=== PATIENT | female | born 1960 | race Caucasian/White ===

== ENCOUNTER → 2017-10-04 | Day surgery (SDC) | payer BC ==
--- NOTE | 2017-10-08 20:40 | OP ---
DATE OF OPERATION: 10/04/2017 PREOPERATIVE DIAGNOSIS: Right axillary mass. POSTOPERATIVE DIAGNOSIS: Right axillary mass. PROCEDURE: Right ultrasound-guided core biopsy with clip placement. ANESTHESIA: Local. ATTENDING SURGEON: Chano Cole MD ESTIMATED BLOOD LOSS: Minimal. COMPLICATIONS: None. DESCRIPTION OF PROCEDURE: Patient was made aware of the risks and benefits of the procedure and consented. She was placed in supine position. Under sterile conditions of 1% lidocaine for local anesthesia, small dayana was made in the skin. Using a 13-suction biopsy device via inferolateral approach under ultrasound guidance, multiple cores were obtained and submitted to Pathology. Likewise, under ultrasound guidance, a U-shaped clip was placed into the biopsy region. Well tolerated by patient. Steri-Strip and sterile bandage were applied. We will contact her with results. CHANO COLE M.D. [id number]
--- NOTE | 2017-10-14 10:50 | PATH ---
Surgical Pathology Report Patient Name: ADRIANE MUÑOZ [facility]. Rec. #: [id number] /Age/Gender: 1960 (Age: 57) / F Account: [id number] Location: [facility] Taken: 10/04/2017 Received: 10/07/2017 Reported: 10/14/2017 Physicians: Rodney Reilly M.D. 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 SEE COMMENT. Comment: Histologic sections show several cores of fibroadipose and lymphoid tissue. The lymphoid tissue has a nodular architecture with scattered secondary follicles. The germinal centers have normal cellular components including centrocytes, centroblasts, and tingible body macrophages. Occasional progressive transformation of germinal centers are present. Immunohistochemical stains for CD20 and CD3 show normal compartmentalization of B cells and T cells, respectively. CD20+ germinal centers are additionally positive for CD10 and BCL-6, while negative for BCL-2. Stain for CD5 is similar to CD3. A stain for cyclin D1 is negative in lymphocytes. Stains for CD21 and CD23 highlight intact dendritic meshworks in the germinal centers. A stain for CD138 highlights scattered plasma cells. In situ hybridization for Freeland and Lambda light chains show the plasma cells to be polytypic. Case was sent for hematopathology consultation with immunohistochemistry to Dr. Carlo Fairbanks from [place], [place] ([id number]), the diagnosis above reflects his opinion. Electronically Signed Irma Cooper M.D. Gross Description Received in formalin labeled "right axilla lymph node," is a 2.0 x 2.0 x 0.3 cm aggregate of multiple raphael-yellow, irregular to cylindrical portions of fibroadipose tissue admixed with blood clot. The formalin is filtered and the specimen is entirely submitted in one cassette. Total formalin fixation time: Approximately 74 hours 10/07/201710/07/2017
== END | disposition home or self-care (01) ==
LOC: FRADUS-SUR 14:01
PROVIDERS: ATTEND Surgery Surgical Oncology
PROC: 07B53ZX Excision of Right Axillary Lymphatic, Percutaneous Approach, Diagnostic (ICD-10-PCS; principal; 2017-10-04)
PROC: BH47ZZZ Ultrasonography of Upper Extremity (ICD-10-PCS; 2017-10-04)
DX: R59.0 Localized enlarged lymph nodes (principal)
CPT/HCPCS: 19083; 88305-TC

== ENCOUNTER 2019-09-27 08:43 | Observation (INO) | payer BC ==
--- NOTE | 2019-09-27 08:52 | PDOC ---
History of Present Illness - General Chief Complaint: Syncope/Near Syncope Stated Complaint: DIZZY, PASSED OUT Time Seen by Provider: 09/27/19 08:45 History Source: Patient Exam Limitations: No Limitations - History of Present Illness Initial Comments: 09/27/19 09:12 59y F Migraine Headaches presenting with a complaint of syncope. Patient states that when she woke up she did not feel well she had some epigastric pain she also felt very warm And lightheaded With palpitations she went downstairs to get something to drink and she syncopized when she was Downstairs. Patient states that she was unconscious for several minutes before family found her, She endorses Mild pounding headache on her left sikhism. She also endorses a mild left back pain. Patient denies any chest pain, shortness of breath, diaphoresis, Recent fever, chills, cough, diarrhea, melena, dysuria, leg swelling, calf pain Patient states she has been feeling well otherwise the last several Days. PMD: Dr. Alexander Social: denies rec drug use ROS Constitutional - no reported Fever, Chills, HEENT: no reported vision changes, sore throat Respiratory: no reported cough, sob, hemoptysis Cardiac: + Syncope, Palpitations, Lightheadedness no reported chest pain, palpitations, leg swelling Abd/GI: +nausea no reported abd pain, vomiting, blood per rectum, melena, diarrhea : no reported dysuria, frequency, discharge Musculskelatal - no reported back pain, joint swelling skin - no reported bruising, erythema, rash neurological: +headache, no reported numbness, focal weakness, tingling, ataxia , hematologic: no reported easy bruising, easy bleeding Physicial Exam GENERAL: The patient is awake, alert, and fully oriented, Nontoxic - in no acute distress. HEAD: Normocephalic, atraumatic. EYES: extraocular movements intact, sclera anicteric, conjunctiva clear. ENT: Normal voice, Moist mucous membranes. NECK: Normal range of motion, supple LUNGS: Breath sounds equal, clear to auscultation bilaterally. No wheezes, no rhonchi, no rales. HEART: Regular rate and rhythm, normal S1 and S2 without murmur, rub or gallop. ABDOMEN: Soft, nontender, No guarding, no rebound. No CVA tenderness EXTREMITIES: Normal range of motion, no edema. PSYCH: Normal mood, normal affect. SKIN: Warm, Dry, normal turgor, NEURO: Mental status: The patient is oriented x3. Cranial nerves: Cranial nerves II through XII are intact Motor: The upper extremities are 5 over 5 in all muscle groups. The lower extremities are 5 over 5 in all muscle groups. Negative pronator drift Sensation: Sensation is intact to light touch throughout. romberg negative Cerebellar: Vgvfcm-slevzy-ccde is normal in both upper extremities. Heel-knee- andersen is normal in both lower extremities. rapid alternating movements are normal. Reflexes: 2+ and symmetric in the upper and lower extremities. Back: No midline tenderness to the cervical, thoracic or lumbar spine Musculoskelatal: FROM of b/l shoulders, elbows, wrist. FROM of hips, knees, ankles - No signs of ecchymosis, erythema, or crepitus noted on palpation extremities, chest wall, clavicals, ribs, back. Differential for the patient's symptoms includes vasovagal syncope, ACS, arrhythmia, anemia, metabolic derangement, Dehydration, occult infection No signs of other injury Will obtain CBC, CMP, troponin, EKG, UA We will place the patient on cable engineer outside plant We will give the patient fluids and Reglan and Tylenol for symptoms Past History - Past Medical History Allergies/Adverse Reactions: Allergies Allergy/AdvReac Type Severity Reaction Status Date / Time latex Allergy Verified 09/27/19 09:02 shellfish derived Allergy Verified 09/27/19 09:02 Home Medications: Ambulatory Orders NK [No Known Home Medication] 09/27/19 COPD: No CHF: No - Psycho Social/Smoking Cessation Hx Smoking History: Never smoked Hx Alcohol Use: No Drug/Substance Use Hx: No Substance Use Type: None *Physical Exam - Vital Signs Last Vital Signs Temp Pulse Resp BP Pulse Ox 98.2 F 89 15 81/69 L 97 09/27/19 11:15 09/27/19 11:44 09/27/19 11:15 09/27/19 11:44 09/27/19 11:40 Heart Score/ECG Review - ECG Impressions Comment:: 09/27/19 09:20 Twelve-lead EKG was performed and reviewed by me. There is normal sinus rhythm with a normal rate. The axis is normal. The intervals are normal. There is normal R wave progression There are no ST or T wave abnormalities. Impression: Normal twelve-lead EKG ED Treatment Course - LABORATORY CBC & Chemistry Diagram: 09/27/19 09:18 09/27/19 09:18 - ADDITIONAL ORDERS Additional order review: Laboratory Results 09/27/19 09/27/19 09/27/19 11:18 11:18 09:18 PT with INR 12.5 INR 1.12 Sodium Potassium Chloride Carbon Dioxide Anion Gap BUN Creatinine Est GFR (CKD-EPI)AfAm Est GFR (CKD-EPI)NonAf POC Glucometer Random Glucose Calcium Total Bilirubin AST ALT Alkaline Phosphatase Creatine Kinase 83 Troponin I Total Protein Albumin Urine Color Yellow Urine Appearance Clear Urine pH 8.5 H Urine Protein Negative Urine Glucose (UA) Negative Urine Ketones Negative Urine Blood Negative Urine Nitrite Negative Urine Bilirubin Negative Urine Urobilinogen 0.2 Ur Leukocyte Esterase Negative 09/27/19 09/27/19 09/27/19 09:18 09:18 08:51 PT with INR INR Sodium 139 Potassium 3.9 Chloride 107 Carbon Dioxide 27 Anion Gap 5 L BUN 19.0 H Creatinine 0.5 L Est GFR (CKD-EPI)AfAm 121.07 Est GFR (CKD-EPI)NonAf 104.46 POC Glucometer 109 Random Glucose 108 H Calcium 9.1 Total Bilirubin 0.6 AST 22 ALT 15 Alkaline Phosphatase 61 Creatine Kinase Troponin I < 0.03 Total Protein 6.3 L Albumin 3.9 Urine Color Urine Appearance Urine pH Urine Protein Urine Glucose (UA) Urine Ketones Urine Blood Urine Nitrite Urine Bilirubin Urine Urobilinogen Ur Leukocyte Esterase 09/27/19 09/27/19 09:18 08:51 RBC 4.28 MCV 88.6 MCHC 32.2 RDW 12.7 MPV 10.0 Neutrophils % 85.9 H Lymphocytes % 9.6 Monocytes % 4.4 Eosinophils % 0.0 Basophils % 0.1 POC Glucometer 109 - Medications Given in the ED: ED Medications Discontinued Medications Generic Name Dose Route Start Last Admin Trade Name Freq PRN Reason Stop Dose Admin Acetaminophen 650 mg 09/27/19 09:10 09/27/19 09:23 Tylenol - PO 09/27/19 09:11 650 mg ONCE ONE Administration Sodium Chloride 1,000 mls @ 1,000 mls/hr 09/27/19 09:10 09/27/19 09:23 Normal Saline - IV 09/27/19 10:09 1,000 mls/hr .Q1H ONE Administration Metoclopramide HCl 10 mg 09/27/19 09:12 09/27/19 09:24 Reglan Injection - IVPUSH 09/27/19 09:13 10 mg ONCE ONE Administration Medical Decision Making - Medical Decision Making 09/27/19 11:10 The patient's lab work was reviewed The patient is feeling improved The patient's family noted the patient and syncopized for approx 15 minutes She also notes that her father had history of blood clots will send a d-dimer To eval for possible PE Will observe for syncope 09/27/19 12:30 + orthostatics will hysrate dimer neg case dw [employer] Cigi will admit for further managemen tin stacia for further workup of syncope Case discussed in detail with admitting physician including history, physical exam and ancillary studies. Admitting physician has assumed care for the patient, will follow all pending diagnostics and will complete the evaluation and treatment. Discharge - Discharge Information Problems reviewed: Yes Clinical Impression/Diagnosis: Syncope Qualifiers: Syncope type: unspecified Qualified Code(s): R55 - Syncope and collapse Condition: Stable - Admission Yes - Follow up/Referral - Patient Discharge Instructions - Post Discharge Activity
[2019-09-27] MEDS ORDERED: SODIUM CHLORIDE 1,000 ML IV ONE ×3 (09:10→12:28)
[2019-09-27] MEDS ORDERED: ACETAMINOPHEN 325 MG TABLET (FP) PO ONE (09:10)
[2019-09-27] MEDS ORDERED: METOCLOPRAMIDE HCL INJECTION 10 MG/2 ML VIAL IVPUSH ONE (09:12)
[2019-09-27 09:46] LABS: BASO % 0.1 % (0-2.0); HEMATOCRIT 37.9 % (32.4-45.2); HEMOGLOBIN 12.2 GM/dl (10.7-15.3); LYMPH % 9.6 % (8-40); MCH 28.5 pg (25.7-33.7); MCHC 32.2 g/dl (32.0-36.0); MEAN CELL VOLUME 88.6 fl (80-96); MONO % 4.4 % (3.8-10.2); NEUT % 85.9 % (42.8-82.8); PLATELET COUNT 210 K/MM3 (134-434); RBC 4.28 M/mm3 (3.60-5.2); RDW 12.7 % (11.6-15.6); WHITE BLOOD COUNT 12.9 K/mm3 (4.0-10.8)
[2019-09-27 09:54] LABS: ALBUMIN 3.9 g/dl (3.4-5.0); BILIRUBIN,TOTAL 0.6 mg/dl (0.2-1); CREATININE 0.5 mg/dl (0.55-1.3); TOT PROT 6.3 g/dl (6.4-8.2)
[2019-09-27 10:56] LABS: CALCIUM 9.1 mg/dL (8.5-10.1); POTASSIUM 3.9 mmol/L (3.5-5.1)
[2019-09-27 11:54] LABS: INR 1.12 (0.82-1.09); PROTHROMBIN TIME (PATIENT) 12.5 SEC (10.2-13.0)
--- NOTE | 2019-09-27 12:59 | HP ---
CHIEF COMPLAINT: Syncope PCP: Dr. Alexander HISTORY OF PRESENT ILLNESS: This is a 59 year old female with a hx of Migraine Headaches, borderline DM/ HDL , who was BIBA from home after a syncopal episode. Pt reports that she woke with epigastric pain and feeling hot with palpitations. Pt denies cp, sob, dizziness, weakness,fever, chills, cough, JANG,N/V/D or urinary symptoms. She reportedly went downstairs to the kitchen to get something to drink. While she was in the kitchen became very dizzy , denies vertigo and the next thing she remember is waking up on the floor,and EMS around her. Family found her on the floor and called EMS,. Family found her on the floor and called EMS. No inc of B /B noted, reports was in a usual state of health, denies any recent sickness or sick contact. ER course was notable for: (1)EKG: SR (2)WBC 12.9,H/H 12.2/37.9, D- Dimer <215, (3) CT head : No evidence of acute intracranial pathology (4) positive orthostatic hypotension Recent Travel:No PAST MEDICAL HISTORY: as mentioned above PAST SURGICAL HISTORY: Rt breast lumpectomy x2 Tonsillectomy at age 16 Laser sx for left leg varicose vein-2018 Tubal ligation Social History: Smoking:No Alcohol:No Drugs: No Family HX Father - CAD, CABG, blood clot Mother -CVA Aunt pancreatic CA Allergies latex Allergy (Verified 09/27/19 09:02) shellfish derived Allergy (Verified 09/27/19 09:02) HOME MEDICATIONS: Home Medications Medication Instructions Recorded NK [No Known Home Medication] 09/27/19 REVIEW OF SYSTEMS CONSTITUTIONAL: Gen weakness, malaise Absent: fever, chills, diaphoresis, loss of appetite, weight change HEENT: Absent: rhinorrhea, nasal congestion, throat pain, throat swelling, difficulty swallowing, mouth swelling, ear pain, eye pain, visual changes CARDIOVASCULAR: positive lightheadedness Absent: chest pain, syncope, palpitations, irregular heart rate, peripheral edema RESPIRATORY: Absent: cough, shortness of breath, dyspnea with exertion, orthopnea, wheezing, stridor, hemoptysis GASTROINTESTINAL: Epigastric pain Absent: abdominal distension, nausea, vomiting, diarrhea, constipation, melena, hematochezia GENITOURINARY: Absent: dysuria, frequency, urgency, hesitancy, hematuria, flank pain, genital pain MUSCULOSKELETAL: Absent: myalgia, arthralgia, joint swelling, back pain, neck pain SKIN: Absent: rash, itching, pallor HEMATOLOGIC/IMMUNOLOGIC: Absent: easy bleeding, easy bruising, lymphadenopathy, frequent infections ENDOCRINE: Absent: unexplained weight gain, unexplained weight loss, heat intolerance, cold intolerance NEUROLOGIC: Absent: headache, focal weakness or paresthesias, dizziness, unsteady gait, seizure, mental status changes, bladder or bowel incontinence PSYCHIATRIC: Absent: anxiety, depression, suicidal or homicidal ideation, hallucinations. PHYSICAL EXAMINATION Vital Signs - 24 hr 09/27/19 09/27/19 09/27/19 08:44 11:15 11:40 Temperature 99.1 F 98.2 F Pulse Rate 87 Pulse Rate [ 82 74 Right] Respiratory 16 15 Rate Blood Pressure 109/61 Blood Pressure 97/60 100/49 L [Left Arm] O2 Sat by Pulse 100 96 97 Oximetry (%) 09/27/19 09/27/19 09/27/19 11:42 11:44 12:32 Temperature Pulse Rate Pulse Rate [ 74 89 72 Right] Respiratory 17 Rate Blood Pressure Blood Pressure 84/57 L 81/69 L 94/55 L [Left Arm] O2 Sat by Pulse 100 Oximetry (%) GENERAL: Awake, alert, and fully oriented, in no acute distress. HEAD: Normal with no signs of trauma. EYES: Pupils equal, round and reactive to light, extraocular movements intact, sclera anicteric, conjunctiva clear. No lid lag. EARS, NOSE, THROAT: Ears normal, nares patent, oropharynx clear without exudates. Moist mucous membranes. NECK: Normal range of motion, supple without lymphadenopathy, JVD, or masses. LUNGS: Breath sounds equal, clear to auscultation bilaterally. No wheezes, and no crackles. No accessory muscle use. HEART: Regular rate and rhythm, normal S1 and S2 without murmur, rub or gallop. ABDOMEN: Epigastric tenderness, abdomen Soft, not distended, normoactive bowel sounds, no guarding, no rebound, no masses. No hepatomegaly or splenomegaly. MUSCULOSKELETAL: Normal range of motion at all joints. No bony deformities or tenderness. No CVA tenderness. UPPER EXTREMITIES: 2+ pulses, warm, well-perfused. No cyanosis. No clubbing. No peripheral edema. LOWER EXTREMITIES: 2+ pulses, warm, well-perfused. No calf tenderness. No peripheral edema. NEUROLOGICAL: Cranial nerves II-XII intact. Normal speech. Normal gait. PSYCHIATRIC: Cooperative. Good eye contact. Appropriate mood and affect. SKIN: Warm, dry, normal turgor, no rashes or lesions noted, normal capillary refill. Laboratory Results - last 24 hr 09/27/19 09/27/19 09/27/19 08:51 09:18 09:18 WBC 12.9 H RBC 4.28 Hgb 12.2 Hct 37.9 MCV 88.6 MCH 28.5 MCHC 32.2 RDW 12.7 Plt Count 210 MPV 10.0 Absolute Neuts (auto) 11.1 Neutrophils % 85.9 H Lymphocytes % 9.6 Monocytes % 4.4 Eosinophils % 0.0 Basophils % 0.1 PT with INR INR D-Dimer Sodium 139 Potassium 3.9 Chloride 107 Carbon Dioxide 27 Anion Gap 5 L BUN 19.0 H Creatinine 0.5 L Est GFR (CKD-EPI)AfAm 121.07 Est GFR (CKD-EPI)NonAf 104.46 POC Glucometer 109 Random Glucose 108 H Calcium 9.1 Total Bilirubin 0.6 AST 22 ALT 15 Alkaline Phosphatase 61 Creatine Kinase Troponin I Total Protein 6.3 L Albumin 3.9 Urine Color Urine Appearance Urine pH Urine Protein Urine Glucose (UA) Urine Ketones Urine Blood Urine Nitrite Urine Bilirubin Urine Urobilinogen Ur Leukocyte Esterase 09/27/19 09/27/19 09/27/19 09:18 09:18 11:18 WBC RBC Hgb Hct MCV MCH MCHC RDW Plt Count MPV Absolute Neuts (auto) Neutrophils % Lymphocytes % Monocytes % Eosinophils % Basophils % PT with INR INR D-Dimer Sodium Potassium Chloride Carbon Dioxide Anion Gap BUN Creatinine Est GFR (CKD-EPI)AfAm Est GFR (CKD-EPI)NonAf POC Glucometer Random Glucose Calcium Total Bilirubin AST ALT Alkaline Phosphatase Creatine Kinase 83 Troponin I < 0.03 Total Protein Albumin Urine Color Yellow Urine Appearance Clear Urine pH 8.5 H Urine Protein Negative Urine Glucose (UA) Negative Urine Ketones Negative Urine Blood Negative Urine Nitrite Negative Urine Bilirubin Negative Urine Urobilinogen 0.2 Ur Leukocyte Esterase Negative 09/27/19 09/27/19 11:18 11:26 WBC RBC Hgb Hct MCV MCH MCHC RDW Plt Count MPV Absolute Neuts (auto) Neutrophils % Lymphocytes % Monocytes % Eosinophils % Basophils % PT with INR 12.5 INR 1.12 D-Dimer < 215 Sodium Potassium Chloride Carbon Dioxide Anion Gap BUN Creatinine Est GFR (CKD-EPI)AfAm Est GFR (CKD-EPI)NonAf POC Glucometer Random Glucose Calcium Total Bilirubin AST ALT Alkaline Phosphatase Creatine Kinase Troponin I Total Protein Albumin Urine Color Urine Appearance Urine pH Urine Protein Urine Glucose (UA) Urine Ketones Urine Blood Urine Nitrite Urine Bilirubin Urine Urobilinogen Ur Leukocyte Esterase ASSESSMENT/PLAN: This is a 59 year old female with a hx of Migraine Headaches, borderline DM/ HDL , who was BIBA from home after a syncopal episode. * Syncope likely due to orthostatic hypotension - EKG: SR, no acute ST changes - will check serial trop , neg x1 - tele monitoring - will check Echo - CT head- neg - will check TSH - s/p IV NS bolus in ER - will cont onIVF * Epigastric pain - added PPI and monitor * Mild leukocytosis - likely reactive - afebrile -UA negative, no respiratory symptoms * Borderline DM/HDL - carb/ low fat diet diet * VTE: Heparin SQ *F/E/N: Diabetic low fat diet Replace electrolytes as needed Visit type - Emergency Visit Emergency Visit: Yes ED Registration Date: 09/27/19 Care time: The patient presented to the Emergency Department on the above date and was hospitalized for further evaluation of their emergent condition. - New Patient This patient is new to me today: Yes Date on this admission: 09/27/19 - Critical Care Critical Care patient: No
[2019-09-27] MEDS: PANTOPRAZOLE 40 MG TABLET (FP) PO SCH (13:20)
[2019-09-27] MEDS ORDERED: SODIUM CHLORIDE 1,000 ML IV SCH (13:30)
--- NOTE | 2019-09-27 13:36 | EKG ---
Test Reason : Blood Pressure : / mmHG Vent. Rate : 088 BPM Atrial Rate : 088 BPM P-R Int : 148 ms QRS Dur : 084 ms QT Int : 382 ms P-R-T Axes : 078 078 068 degrees QTc Int : 462 ms NORMAL SINUS RHYTHM NORMAL ECG NO PREVIOUS ECGS AVAILABLE Confirmed by MD Chinyere, Chuckie ([id number]) on 09/27/2019 1:36:05 PM Referred By: SAMINA Confirmed By:Chuckie Whitlock MD
[2019-09-27 14:08] VITALS: BMI 23.4
[2019-09-27] MEDS: HEPARIN NA (PORCINE) 5,000 UNITS/ML 1ML VIAL SQ SCH ×2 (14:15→21:19)
[2019-09-27] MEDS ORDERED: guaiFENesin/D-METHORPHAN HB 10 ML UNIT-DOSE CUPS PO PRN (21:38)
[2019-09-27] MEDS: ACETAMINOPHEN 325 MG TABLET (FP) PO PRN (21:48)
[2019-09-28] MEDS: BENZOCAINE/MENTH/CETYLPYRD CL 1 EACH LOZENGE MM PRN ×2 (02:05→09:34)
[2019-09-28] MEDS: HEPARIN NA (PORCINE) 5,000 UNITS/ML 1ML VIAL SQ SCH (06:22)
[2019-09-28 08:19] LABS: BASO % 0.4 % (0-2.0); EOS % 0.7 % (0-4.5); HEMATOCRIT 31.7 % (32.4-45.2); HEMOGLOBIN 10.6 GM/dl (10.7-15.3); LYMPH % 25.5 % (8-40); MCH 29.5 pg (25.7-33.7); MCHC 33.3 g/dl (32.0-36.0); MEAN CELL VOLUME 88.6 fl (80-96); MEAN PLT VOLUME 10.6 fl (7.5-11.1); MONO % 6.8 % (3.8-10.2); NEUT % 66.6 % (42.8-82.8); PLATELET COUNT 168 K/MM3 (134-434); RBC 3.58 M/mm3 (3.60-5.2); RDW 12.7 % (11.6-15.6); WHITE BLOOD COUNT 8.8 K/mm3 (4.0-10.8)
[2019-09-28 09:10] LABS: BLOOD UREA NITROGEN 4.7 mg/dL (7-18); CALCIUM 8.3 mg/dL (8.5-10.1); CREATININE 0.4 mg/dL (0.55-1.3); POTASSIUM 3.5 mmol/L (3.5-5.1)
[2019-09-28] MEDS: PANTOPRAZOLE 40 MG TABLET (FP) PO SCH (09:32)
[2019-09-28] MEDS: ACETAMINOPHEN 325 MG TABLET (FP) PO PRN (09:33)
--- NOTE | 2019-09-28 13:15 | DS ---
Physical Exam: SUBJECTIVE: Patient seen and examined sitting on edge of bed. OBJECTIVE: Vital Signs Period Temp Pulse Resp BP Sys/Crandall Pulse Ox Last 24 Hr 97.9 F-99.8 F 56-95 16-20 89-118/36-59 95-100 PHYSICAL EXAM GENERAL: The patient is awake, alert, and fully oriented, in no acute distress. LUNGS: Breath sounds equal, clear to auscultation bilaterally, no wheezes, no crackles, no accessory muscle use. HEART: Regular rate and rhythm, S1, S2 ABDOMEN: Soft, nontender, nondistended, normoactive bowel sounds, no guarding, no rebound, no hepatosplenomegaly, no masses. EXTREMITIES: 2+ pulses, warm, well-perfused, no edema. NEUROLOGICAL: Cranial nerves II through XII grossly intact. Normal speech, gait not observed. PSYCH: Normal mood, normal affect. SKIN: Warm, dry, normal turgor, no rashes or lesions noted. LABS Laboratory Results - last 24 hr 09/27/19 09/27/19 09/28/19 13:11 17:08 06:20 WBC 8.8 RBC 3.58 L Hgb 10.6 L Hct 31.7 L D MCV 88.6 MCH 29.5 MCHC 33.3 RDW 12.7 Plt Count 168 MPV 10.6 Absolute Neuts (auto) 5.9 Neutrophils % 66.6 Lymphocytes % 25.5 Monocytes % 6.8 Eosinophils % 0.7 Basophils % 0.4 Sodium Potassium Chloride Carbon Dioxide Anion Gap BUN Creatinine Est GFR (CKD-EPI)AfAm Est GFR (CKD-EPI)NonAf Random Glucose Calcium Troponin I < 0.03 TSH 0.87 09/28/19 09/28/19 06:20 06:20 WBC RBC Hgb Hct MCV MCH MCHC RDW Plt Count MPV Absolute Neuts (auto) Neutrophils % Lymphocytes % Monocytes % Eosinophils % Basophils % Sodium 142 Potassium 3.5 Chloride 112 H Carbon Dioxide 27 Anion Gap 3 L BUN 4.7 L Creatinine 0.4 L Est GFR (CKD-EPI)AfAm 130.29 Est GFR (CKD-EPI)NonAf 112.42 Random Glucose 97 Calcium 8.3 L Troponin I < 0.03 TSH HOSPITAL COURSE: Date of Admission:09/27/19 Date of Discharge: 09/28/19 Pre hospital course This is a 59 year old female with a hx of Migraine Headaches, borderline DM/ HDL , who was BIBA from home after a syncopal episode. Pt reports that she woke with epigastric pain and feeling hot with palpitations. Pt denies cp, sob, dizziness, weakness,fever, chills, cough, JANG,N/V/D or urinary symptoms. She reportedly went downstairs to the kitchen to get something to drink. While she was in the kitchen became very dizzy , denies vertigo and the next thing she remember is waking up on the floor,and EMS around her. Family found her on the floor and called EMS,. Family found her on the floor and called EMS. No inc of B /B noted, reports was in a usual state of health, denies any recent sickness or sick contact. ER course (1)EKG: SR (2)WBC 12.9,H/H 12.2/37.9, D- Dimer <215, (3) CT head : No evidence of acute intracranial pathology Subsequent hospital course not orthostatic Minutes to complete discharge: 35 Discharge Summary Problems reviewed: Yes Reason For Visit: syncope Current Active Problems Syncope (Acute) Condition: Stable - Instructions Diet, Activity, Other Instructions: It is important to stay well-hydrated, drink plenty of fluids. Disposition: HOME - Home Medications Comprehensive Discharge Medication List: Ambulatory Orders NK [No Known Home Medication] 09/27/19 This patient is new to me today: Yes Date on this admission: 09/28/19 Emergency Visit: Yes ED Registration Date: 09/27/19 Care time: The patient presented to the Emergency Department on the above date and was hospitalized for further evaluation of their emergent condition. Critical Care patient: No - Discharge Referral Referred to [facility] No
--- NOTE | 2019-09-28 14:17 | CON.CARD ---
Consult Consult Specialty:: Cardiology Referred by:: Medicine Reason for Consultation:: syncope - History of Present Illness Chief Complaint: syncope History of Present Illness: 59F h/o migraines, DM, HLD p/w syncope. Woke up morning of admission with epigastric pain, felt hot, palps. Went down to kitchen to get a drink, felt dizzy and woke up on the floor. [place] the room was spinning. Her found her about 15 min later, she doesn't remember much until she was in the ambulance. Similar episode a few years ago where she lost consciousness, but regained consciousness in 2 minutes at that time. This time she was out for 15- 20 min per her . No chest pain, dyspnea, orthopnea, edema. She gets occasional palps, last few months, lasting a few seconds. Not sure how often they happen, last a few seconds. - Past Medical History ...: No - Alcohol/Substance Use Hx Alcohol Use: No - Smoking History Smoking history: Never smoked Have you smoked in the past 12 months: No Home Medications - Allergies Allergies/Adverse Reactions: Allergies Allergy/AdvReac Type Severity Reaction Status Date / Time latex Allergy Verified 09/27/19 09:02 shellfish derived Allergy Verified 09/27/19 09:02 - Home Medications Home Medications: Ambulatory Orders NK [No Known Home Medication] 09/27/19 Family Medical History Family History: Unremarkable Review of Systems - Review of Systems Constitutional: reports: No Symptoms Eyes: reports: No Symptoms HENT: reports: No Symptoms Neck: reports: No Symptoms Cardiovascular: reports: No Symptoms Respiratory: reports: No Symptoms Gastrointestinal: reports: No Symptoms Genitourinary: reports: No Symptoms Musculoskeletal: reports: No Symptoms Integumentary: reports: No Symptoms Neurological: reports: No Symptoms Endocrine: reports: No Symptoms Hematology/Lymphatic: reports: No Symptoms Psychiatric: reports: No Symptoms Vital Signs: Vital Signs Temperature 98.0 F 09/28/19 05:00 Pulse Rate 73 09/28/19 09:00 Respiratory Rate 20 09/28/19 07:33 Blood Pressure 100/50 L 09/28/19 09:00 O2 Sat by Pulse Oximetry (%) 98 09/28/19 07:33 Constitutional: Yes: Well Nourished, No Distress, Calm Eyes: Yes: Conjunctiva Clear, EOM Intact HENT: Yes: Atraumatic, Normocephalic Neck: Yes: Supple, Trachea Midline Respiratory: Yes: Regular, CTA Bilaterally Gastrointestinal: Yes: Normal Bowel Sounds, Soft Cardiovascular: Yes: Regular Rate and Rhythm JVD: No PMI: Non-Displaced Heart Sounds: Yes: S1, S2 Extremities: No: Cold Edema: No Integumentary: No: Jaundice Neurological: Yes: Alert, Oriented Psychiatric: No: Agitated - Other Data Labs, Other Data: CBC, BMP 09/28/19 06:20 09/28/19 06:20 INR, PTT INR 1.12 (0.82-1.09) 09/27/19 11:18 Troponin, BNP 09/27/19 09/28/19 17:08 06:20 Troponin I < 0.03 < 0.03 Troponin, BNP 09/27/19 09/28/19 17:08 06:20 Troponin I < 0.03 < 0.03 Assessment/Plan EKG: sinus, nl intervals, no ischemic changes syncope - history most consistent with vasovagal vs orthostatic hypotension - echo pending - carotid dopplers - trop neg x 3, EKG no ischemic changes - unlikely ACS - monitor on tele epigastric pain - improving with PPI - manage per primary leukocystosis - infectious workup per primary
[2019-09-28 14:44] VITALS: BP 108/54; PULSE 75; TEMP 98.2
--- NOTE | 2019-09-28 15:46 | ECHO ---
Name: ADRIANE MUÑOZ Exam:Adult Echocardiogram Study Date: 09/28/2019 02:52 PM Age: 59 yrs Reason For Study: SYNCOPE Height: 62 in Weight: 123 lb BSA: 1.6 m2 MMode/2D Measurements & Calculations IVSd: 0.70 cm Ao root diam: 2.4 cm LVIDd: 3.1 cm LA dimension: 2.9 cm LVIDs: 2.2 cm LVPWd: 0.96 cm LVPWs: 0.84 cm EDV(Teich): 36.7 ml ESV(Teich): 15.9 ml Doppler Measurements & Calculations MV E max gene: 110.1 cm/sec MV A max gene: 82.8 cm/sec MV dec slope: 577.7 cm/sec2 MV E/A: 1.3 Ao V2 max: 142.0 cm/sec LV V1 max P.7 mmHg Ao max P.1 mmHg LV V1 max: 108.0 cm/sec TR max gene: 210.0 cm/sec PA V2 max: 104.7 cm/sec TR max P.7 mmHg PA max P.4 mmHg Procedure A complete two-dimensional transthoracic echocardiogram was performed (2D, M-mode, Doppler and color flow Doppler). Left Ventricle The left ventricle is normal in size. Left ventricular systolic function is normal. Ejection Fraction = 55- 60%. No regional wall motion abnormalities noted. Right Ventricle The right ventricle is normal size. The right ventricular systolic function is normal. Atria The left atrial size is normal. Right atrial size is normal. Mitral Valve The mitral valve is normal in structure and function. There is mild mitral regurgitation. Tricuspid Valve The tricuspid valve is normal in structure and function. There is mild tricuspid regurgitation. Right ventricular systolic pressure is normal. Aortic Valve There is mild aortic sclerosis.;. No aortic regurgitation is present. Pulmonic Valve The pulmonic valve is not well visualized. Great Vessels The aortic root is normal size. Pericardium/Pleura There is no pericardial effusion. Interpretation Summary The left ventricle is normal in size. Left ventricular systolic function is normal. No regional wall motion abnormalities noted. Ejection Fraction = 55-60%. The right ventricular systolic function is normal. The left atrial size is normal. Right atrial size is normal. There is mild mitral regurgitation. There is mild tricuspid regurgitation. Right ventricular systolic pressure is normal. There is mild aortic sclerosis. There is no pericardial effusion. Maxwell Johnson MD 09/28/2019 03:45 PM
== END 2019-09-28 17:48 | disposition home or self-care (01) ==
LOC: FER 08:43 → FM/S 11:20
PROVIDERS: ADMIT Internal Medicine; ATTEND Nurse Practitioner Acute Care
PROC: 3E033GC Introduction of Other Therapeutic Substance into Peripheral Vein, Percutaneous Approach (ICD-10-PCS; principal; 2019-09-27)
PROC: 3E0337Z Introduction of Electrolytic and Water Balance Substance into Peripheral Vein, Percutaneous Approach (ICD-10-PCS; 2019-09-27)
PROC: 3E013GC Introduction of Other Therapeutic Substance into Subcutaneous Tissue, Percutaneous Approach (ICD-10-PCS; 2019-09-27)
DX: R55 Syncope and collapse (principal); R10.13 Epigastric pain; D72.829 Elevated white blood cell count, unspecified; R73.03 Prediabetes
CPT/HCPCS: 36415; 70450-TC; 80048; 80053; 81003; 82550; 82962; 84443; 84484; 85025; 85379; 85610; 93005; 93306-TC; 93880-TC; 96361; 96372; 96374; 97116-GP; 97161-GP; 99285-25; G0378; J1644; J7030

== ENCOUNTER 2021-09-25 10:33 | Emergency (ER) | payer BC ==
[2021-09-25 11:09] VITALS: TEMP 97.9; BMI 20.2
[2021-09-25] MEDS ORDERED: SODIUM CHLORIDE 1,000 ML IV STA (12:07)
[2021-09-25 12:50] LABS: BASO % 0.3 % (0-2.0); EOS % 0.2 % (0-4.5); HEMATOCRIT 40.2 % (32.4-45.2); HEMOGLOBIN 13.3 GM/dL (10.7-15.3); LYMPH % 30.5 % (8-40); MCH 28.9 pg (25.7-33.7); MCHC 33.1 g/dl (32.0-36.0); MEAN CELL VOLUME 87.2 fl (80-96); MEAN PLT VOLUME 9.7 fl (7.5-11.1); PLATELET COUNT 216 10^3/uL (134-434); RBC 4.61 M/mm3 (3.60-5.2); RDW 13.5 % (11.6-15.6); WHITE BLOOD COUNT 6.5 K/mm3 (4.0-10.0)
[2021-09-25 13:03] LABS: CHLORIDE 107 mmol/L (98-107); SODIUM 140 mmol/L (136-145)
[2021-09-25 13:06] LABS: CALCIUM 9.4 mg/dL (8.5-10.1)
[2021-09-25 13:07] LABS: ALBUMIN 4.1 g/dl (3.4-5.0); ANION GAP 4 MMOL/L (8-16); CO2 29 mmol/L (21-32); GLUCOSE,RANDOM 91 mg/dL (74-106); MAGNESIUM 2.5 mg/dL (1.8-2.4)
[2021-09-25 13:09] LABS: CREATININE 0.6 mg/dL (0.55-1.3); SGOT/AST 20 U/L (15-37); SGPT/ALT 18 U/L (13-61)
[2021-09-25 13:12] LABS: BILIRUBIN,TOTAL 0.4 mg/dL (0.2-1); TOT PROT 7.2 g/dl (6.4-8.2)
[2021-09-25 13:13] LABS: ALK PHOS 84 U/L (45-117)
[2021-09-25 13:53] VITALS: BP 112/79; PULSE 76
== END 2021-09-25 13:52 | disposition home or self-care (01) ==
LOC: JER 10:33
PROC: 3E0337Z Introduction of Electrolytic and Water Balance Substance into Peripheral Vein, Percutaneous Approach (ICD-10-PCS; principal; 2021-09-25)
DX: R55 Syncope and collapse (principal)
CPT/HCPCS: 36415; 71046-TC-FY; 80053; 82550; 82962; 83735; 84484; 85025; 93005; 93010; 99285-25